=== PATIENT | female | born 1990 | race Caucasian/White ===

== ENCOUNTER → 2020-03-21 10:47 | Outpatient (CLI) | payer SELFPAY ==
[2020-03-21 12:10] LABS: Add Manual Diff / Slide Review NO; Basophils Absolute Auto 0 /uL (0-100); Basophils Percent Auto 0.5 % (0-2); Eosinophils Absolute Auto 0 /uL (0-450); Eosinophils Percent Auto 0.2 % (2-4); Hematocrit 38.2 % (36-46); Hemoglobin 13.2 g/dL (12.0-16.0); Lymphocytes Absolute Auto 900 /uL (1100-4500); Lymphocytes Percent Auto 11.9 % (25-40); Mean Corpuscular HGB Conc 34.7 % (30-36); Mean Corpuscular Hemoglobin 32.8 PG (26-34); Mean Corpuscular Volume 94.5 fL (80-100); Monocytes Absolute Auto 400 /uL (0-900); Neutrophils Absolute Auto 6400 /uL (1500-7000); Neutrophils Percent Auto 82.4 % (50-75); Platelet Count 232 X10^3/uL (150-400); Red Blood Cell Count 4.04 X10^6/uL (4.0-5.2); Red Cell Distribution Width 13.2 % (11.6-14.8); White Blood Cell Count 7.8 X10^3/uL (4.5-11.0)
== END ==
PROVIDERS: PCP Obstetrics & Gynecology; Referring Provider Obstetrics & Gynecology; Visit Provider Obstetrics & Gynecology
DX: O02.1 Missed abortion (principal)
CPT/HCPCS: 36415; 85025; 86850; 86900; 86901

== ENCOUNTER 2023-06-28 18:48 | Emergency (ER) | payer OTHER, SELFPAY ==
[2023-06-28 19:30] VITALS: BP 140/88; PULSE 98; RESP 17; TEMP 36.4; O2SAT 100; BMI 33.3
--- NOTE | 2023-06-28 19:32 | DI.RAD.S_ITS ---
PROCEDURE: XR FOOT LT MIN 3V INDICATIONS: hurt foot while running TECHNIQUE: 3 views of the foot were acquired. COMPARISON: None. FINDINGS: Bones: No fractures or dislocations. No suspicious bony lesions. Soft tissues: No tibiotalar joint effusion. Achilles tendon appears normal. IMPRESSION: No acute bony abnormality. If there is continued concern for occult fracture, immobilization and reimaging in 7-10 days is recommended. Dictated by: Macie Tim M.D. on 06/28/2023 at 20:51 Approved by: Macie Tim M.D. on 06/28/2023 at 20:52
[2023-06-28 23:05] VITALS: BP 145/99; PULSE 78; RESP 18; O2SAT 98
--- NOTE | 2023-06-29 01:04 | ED_ITS ---
HPI - Extremity Injury (Lower) General Chief Complaint: Extremity Injury, Lower Stated Complaint: L FT hear a pop Time Seen by Provider: 06/29/23 00:40 Source: patient Mode of arrival: Ambulatory History of Present Illness HPI Narrative: Patient is a 33-year-old female without significant past medical history presenting today with left foot pain. She reports that she was running when she slipped in mud and felt something pop in her foot. It does hurt to ambulate but she has been able to do so. No other injury. Related Data Allergies Allergy/AdvReac Type Severity Reaction Status Date / Time Penicillins Allergy Intermediate As a child Verified 06/28/23 19:30 : Hives/Rash - since then no ill effect Patient History Medical History Miscarriage Ovarian cyst (~01/2020) Surgical History History of open reduction and internal fixation (ORIF) procedure Family History Mother Diabetes mellitus Type 2 diabetes mellitus Father Family estrangement Grandmother Alzheimer disease Dementia Grandfather Family estrangement Grandmother Family estrangement Grandfather Family estrangement Family/Other Cancer Breast cancer Bone cancer Brother No known health problems Sister No known health problems Social History marital status: household members: spouse and family (Mom, Step Dad, Brother and Sister) lives independently: No caregiver/support person: No housing: house pets and animals: Yes (X 2 dogs, X 4 cats : aware ) education level: high school occupational status: unemployed current occupational exposures/hazards: No Previous occupational history: 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 CARDIOVASCULAR: peripheral pulses in tact, cap refill <2 sec RESPIRATORY: No respiratory distress, speaks in full sentences without difficulty EXTREMITIES: Normal range of motion, no clubbing or edema. Neurovascularly intact Left foot no gross deformity distal pedal pulse intact midfoot pain minimal swelling no contusion no erythema Achilles tendon intact ankle stable NEUROLOGICAL: Cranial nerves II through XII grossly intact. Normal gait and speech. SKIN: Warm, dry, no petechiae, no rashes or lesions. Course Orders Ordered: ED Orders 06/28/23 19:32 XR foot LT min 3V Stat Vital Signs Vital signs: Vital Signs - 8 hr 06/28/23 19:30 06/28/23 23:05 06/29/23 01:28 Temperature 97.6 F Pulse Rate 98 H 78 72 Respiratory Rate 17 18 18 Blood Pressure 140/88 145/99 H 125/71 Pulse Oximetry 100 98 98 Oxygen Delivery Method Room Air Room Air MDM - Extremity Injury (Lower) Imaging Data Extremity x-ray #1: Radiologist's Impression: PROCEDURE: XR FOOT LT MIN 3V INDICATIONS: hurt foot while running TECHNIQUE: 3 views of the foot were acquired. COMPARISON: None. FINDINGS: Bones: No fractures or dislocations. No suspicious bony lesions. Soft tissues: No tibiotalar joint effusion. Achilles tendon appears normal. IMPRESSION: No acute bony abnormality. If there is continued concern for occult fracture, immobilization and reimaging in 7-10 days is recommended. Dictated by: Macie Tim M.D. on 06/28/2023 at 20:51 [facility] Narrative Medical decision making narrative: Patient 33-year-old female presents today with left foot pain after mechanical trip. [place] a pop. X-ray is negative no obvious trauma on exam. She is offered crutches and a work note but declines at this time. Supportive care only. Discharge Plan Departure Patient Disposition: Home Clinical Impression: Sprain of foot, left Instructions: DI for Foot Sprain Activity Restrictions/Additional Instructions: *You have been diagnosed with left foot sprain *What to do: At this time increase activity as tolerated recommend supportive shoes. Elevate as often as possible ice 20-30 minutes at a time. If still having pain in 2 weeks may require repeat x-ray by PCP *Continue to take medications as directed Tylenol Motrin as needed for pain *Follow up with your primary care provider in 2-3 days or call [phone] *Return to ER if you should have increasing pain swelling unable to bear weight [or] any new, worsening or concerning symptoms Referrals: *Temp,ED* [Primary Care Provider] - Stand Alone Forms: Patient Portal/API, Work Release Note
[2023-06-29 01:28] VITALS: BP 125/71; PULSE 72; RESP 18; O2SAT 98
== END 2023-06-29 01:30 | disposition home or self-care (01) ==
PROVIDERS: Emergency Provider Emergency Medicine
DX: S93.602A Unspecified sprain of left foot, initial encounter (principal); W01.0XXA Fall on same level from slipping, tripping and stumbling without subsequent striking against object, initial encounter
CPT/HCPCS: 73630; 99281; 99283